=== PATIENT | female | born 1955 | race Caucasian/White ===

== ENCOUNTER 2018-12-17 08:56 | Emergency (ER) | payer MEDICARE, OTHER ==
[2018-12-17] MEDS ORDERED: ASPIRIN 81 MG CHEWABLE TABLET PO ONE (09:36)
--- NOTE | 2018-12-17 09:40 | Emergency Department Record ---
History of Present Illness - General Chief Complaint: Arrythmia/Palpitations Stated Complaint: PALPITATIONS Time Seen by Provider: 12/17/18 09:33 Source: Patient, RN notes reviewed Mode of Arrival: Ambulatory - History of Present Illness Initial Comments: patient states palpitations and it lasted for 3 hours today and this has been happening on and off for one year and she has an appointment to see her primary DR Rodriguez in [facility] at 3 pm. left leg is swollen on and off for one year and she was told it was varicose veins.PSH bilateral knee replacement and last one was the left 2010 Complaint: Palpitations Onset/Timin -: Days(s) Context: Awoke with symptoms Arrythmia History: Other Associated Symptoms: Shortness of breath - Related Data Home Medications Medication Instructions Recorded Confirmed Last Taken Montelukast Sodium [Singulair] 10 mg PO QHS 12/17/18 12/17/18 Unknown Previous Rx's Medication Instructions Recorded Metoprolol Succinate [Toprol Xl] 25 mg PO DAILY #14 tab.er.24h 12/17/18 Allergies Allergy/AdvReac Type Severity Reaction Status Date / Time codeine AdvReac vomiting Unverified 02/18/17 10:43 Travel Screening - Travel/Exposure Within Last 30 Days Have you traveled within the last 30 days?: No Review of Systems Reviewed: No additional complaints except as noted below Constitutional: Reports: As per HPI. Denies: Chills, Fever, Malaise, Night sweats, Weakness, Weight change Eyes: Reports: As per HPI. Denies: Eye discharge, Eye pain, Photophobia, Vision change ENT: Reports: As per HPI. Denies: Congestion, Dental pain, Ear pain, Epistaxis , Hearing loss, Throat pain Respiratory: Reports: As per HPI. Denies: Cough, Dyspnea, Hemoptysis, Stridor, Wheezes Cardiovascular: Reports: As per HPI. Denies: Arrhythmia, Chest pain, Dyspnea on exertion, Edema, Murmurs, Orthopnea, Palpitations, Paroxysmal nocturnal dyspnea, Rheumatic Fever, Syncope Endocrine: Reports: As per HPI. Denies: Fatigue, Heat or cold intolerance, Polydipsia, Polyuria Gastrointestinal: Reports: As per HPI. Denies: Abdominal pain, Constipation, Diarrhea, Hematemesis, Hematochezia, Melena, Nausea, Vomiting Genitourinary: Reports: As per HPI. Denies: Abnormal menses, Discharge, Dyspareunia, Dysuria, Frequency, Hematuria, Incontinence, Retention, Urgency Musculoskeletal: Reports: As per HPI. Denies: Arthralgia, Back pain, Gout, Joint swelling, Myalgia, Neck pain Skin: Reports: As per HPI. Denies: Bruising, Change in color, Change in hair/ nails, Lesions, Pruritus, Rash Neurological: Reports: As per HPI. Denies: Abnormal gait, Confusion, Headache, Numbness, Paresthesias, Seizure, Tingling, Tremors, Vertigo, Weakness Psychiatric: Reports: As per HPI. Denies: Anxiety, Auditory hallucinations, Depression, Homicidal thoughts, Suicidal thoughts, Visual hallucinations Hematological/Lymphatic: Reports: As per HPI. Denies: Anemia, Blood Clots, Easy bleeding, Easy bruising, Swollen glands Past Medical History - SOCIAL HISTORY Smoking Status: Former smoker Alcohol Use: Occasional Drug Use: None - RESPIRATORY Hx Respiratory Disorders: Yes Hx Asthma: Yes Hx Bronchitis: Yes - CARDIOVASCULAR Hx Cardio Disorders: No - NEURO Hx Neuro Disorders: No - GI Hx GI Disorders: No - Hx Genitourinary Disorders: No - ENDOCRINE Hx Endocrine Disorders: No - MUSCULOSKELETAL Hx Musculoskeletal Disorders: No - PSYCH Hx Psych Problems: No - HEMATOLOGY/ONCOLOGY Hx Hematology/Oncology Disorders: No Family Medical History Any Significant Family History?: No Physical Exam - General General Appearance: Alert, Oriented x3, Cooperative, No acute distress - Head Head exam: Normal inspection - Eye Eye exam: Normal appearance, PERRL Pupils: Normal accommodation - ENT ENT exam: Normal exam, Mucous membranes moist, Normal external ear exam, Normal orophraynx, TM's normal bilaterally Ear exam: Normal external inspection. negative: External canal tenderness Nasal Exam: Normal inspection. negative: Discharge, Sinus tenderness Mouth exam: Normal external inspection, Tongue normal Teeth exam: Normal inspection. negative: Dental caries Throat exam: Normal inspection. negative: Tonsillar erythema, Tonsillar exudate - Neck Neck exam: Normal inspection, Full ROM. negative: Tenderness - Respiratory Respiratory exam: Normal lung sounds bilaterally. negative: Respiratory distress - Cardiovascular Cardiovascular Exam: Regular rate, Normal rhythm, Normal heart sounds - GI/Abdominal GI/Abdominal exam: Soft, Normal bowel sounds. negative: Tenderness - Rectal Rectal exam: Deferred - exam: Deferred - Extremities Extremities exam: Normal inspection, Full ROM, Normal capillary refill. negative: Tenderness - Back Back exam: Reports: Normal inspection, Full ROM. Denies: Muscle spasm, Rash noted, Tenderness - Neurological Neurological exam: Alert, Normal gait, Oriented X3, Reflexes normal - Psychiatric Psychiatric exam: Normal affect, Normal mood - Skin Skin exam: Dry, Intact, Normal color, Warm Course Vital Signs 12/17/18 12/17/18 09:04 09:26 Temperature 97.5 F L Pulse Rate 68 Respiratory 20 Rate Blood Pressure 202/102 Blood Pressure 188/90 [Left Arm] Pulse Ox 97 - Reevaluation(s) Reevaluation #1: No palpitations in the ed but her BP is highso will prescribe toprolxl 25 mg per day 12/17/18 14:52 Reevaluation #2: patient is feeling better 12/17/18 14:55 Medical Decision Making - Data Complexity MDM Data: Labs Ordered and/or Reviewed (trop neg times two), X-Ray Ordered and/ or Reviewed (venous dopler of the left leg negative) - Lab Data Result diagrams: 12/17/18 09:15 12/17/18 09:15 Disposition Clinical Impression: Heart palpitations Disposition: Home, Self-Care Condition: (1) Good Instructions: Heart Palpitations (ED) Additional Instructions: follow up with family dr as scheduled tomorrow Prescriptions: Metoprolol Succinate [Toprol Xl] 25 mg PO DAILY #14 tab.er.24h Forms: Patient Portal Access Time of Disposition: 14:54 ( ) Quality - Quality Measures Quality Measures: N/A - Blood Pressure Screening Does Patient Have Any of the Following: No Blood Pressure Classification: Hypertensive Reading Systolic Measurement: 202 Diastolic Measurement: 102 Screening for High Blood Pressure: < First Hypertensive BP, F/U Documented > [ [id number]] First Hypertensive Follow-up Interventions: Referral to alternative/primary care provider.
[2018-12-17 09:51] LABS: BASO % 0.7 % (0-6); EOS % 1.2 % (0-6); GRAN % 66.6 % (47-80); HEMATOCRIT 43.9 % (35.0-47.0); HEMOGLOBIN 14.2 gm/dl (11.6-16.0); MEAN CELL VOLUME 94.8 fl (81-97); MEAN CORPUSCULAR HEMOGLOBIN 30.7 pg (27-33); MEAN CORPUSCULAR HGB CONC 32.3 g/dl (32-36); MEAN PLATELET VOLUME 10.3 fl (7.4-10.4); MONO % 11.5 % (0-9); PLATELET COUNT 283 K/uL (130-400); RED BLOOD COUNT 4.63 M/uL (3.80-5.40); RED CELL DISTRIBUTION WIDTH 13.4 % (11.5-14.5); WHITE BLOOD COUNT W/O DIFF 6.9 K/uL (4.2-12.2)
[2018-12-17 10:01] LABS: BLOOD UREA NITROGEN 9 mg/dL (8-23); CREATININE 0.7 mg/dL (0.5-0.9); EST GLOMERULAR FILTRATION RATE > 60 mL/min
[2018-12-17 10:04] LABS: GLUCOSE,RANDOM 104 mg/dL (74-109)
[2018-12-17 10:16] LABS: THYROID STIMULATING HORMONE 1.74 uIU/mL (0.270-4.20)
--- NOTE | 2018-12-18 14:10 | RADIOLOGY REPORT ---
EXAM: CHEST, TWO VIEWS HISTORY: DIFFICULTY IN BREATHING. TECHNIQUE: Frontal and lateral views of the chest were performed. FINDINGS: The heart size is normal. The lung gaxiola are clear. No infiltrate or pleural effusion. The osseous structures are normal. IMPRESSION: NEGATIVE CHEST EXAMINATION. JOB NUMBER: [id number] MTDD
--- NOTE | 2018-12-19 08:18 | US VENOUS DOPPLER REPORT ---
EXAM: ULTRASOUND OF THE DEEP VENOUS SYSTEM OF THE LEFT LOWER EXTREMITY HISTORY: SWOLLEN LEG. TECHNIQUE: Sonographic evaluation of the deep venous system of the left lower extremity was performed with the addition of Doppler, compression and augmentation. FINDINGS: There is normal blood flow, compression, and augmentation identified in the deep venous system of the left lower extremity. IMPRESSION: NEGATIVE FOR DEEP VEIN THROMBOSIS IN THE LEFT LOWER EXTREMITY. JOB NUMBER: [id number] MTDD
== END 2018-12-17 15:08 | disposition home or self-care (01) ==
LOC: ER 08:56
DX: R00.2 Palpitations (principal); R03.0 Elevated blood-pressure reading, without diagnosis of hypertension; R06.02 Shortness of breath; R22.43 Localized swelling, mass and lump, lower limb, bilateral; Z96.653 Presence of artificial knee joint, bilateral; Z87.891 Personal history of nicotine dependence
CPT/HCPCS: 71046; 80048; 84443; 84484; 85025; 85730; 93005; 93010; 99284